=== PATIENT | male | born 1940 | race Caucasian/White ===

== ENCOUNTER → 2017-09-08 | Outpatient (CLI) | payer MEDICARE | LOC: COL.RAD 13:58 | DX: M51.37 Other intervertebral disc degeneration, lumbosacral region (principal); M43.17 Spondylolisthesis, lumbosacral region ==

== ENCOUNTER 2019-06-22 09:45 | Outpatient (CLI) | payer MEDICARE ==
[2019-06-22] VITALS (44 sets, daily range): BP systolic 107–138; BP diastolic 63–74; PULSE 46–65; TEMP 36.7; O2SAT 76–99
[~2019-06-22] VITALS: Ht 182.9 cm; Wt 101.9 kg
[2019-06-22] MEDS ORDERED: ZOCOR 40MG40 MG PO (10:09)
[2019-06-22] MEDS ORDERED: ASPIRIN E.C. 8181 MG PO (10:10)
[2019-06-22] MEDS ORDERED: GLUCOSAMINE & C1 CA1 PO (10:15)
[2019-06-22] MEDS ORDERED: PRINIVIL40 MG PO (10:16)
[2019-06-22] MEDS ORDERED: FLOMAX 0.40.4 MG/CAP PO (10:17)
[2019-06-22] MEDS ORDERED: TOPROL XL 25MG25 MG PO (10:37)
--- NOTE | 2019-06-22 12:35 | NUR ---
SPOKE WITH EMILY JACOB REGARDING PATIENTS NEW ONSET TACHYCARDIA. VERBAL ORDER RECEVIED FOR LOPRESSOR 5 MG IV. ELIGIO, METALLURGICAL ANALYST RN IS AT BS. TACHYCARDIA STARTED AFTER INSERTION OF LOOP RECORDER. PT DENIES ANY CP, SOB ETC, HE IS FEELING THE PALPITATIONS.
--- NOTE | 2019-06-22 12:45 | NUR ---
Loop recorder inserted. Following application of sterile dressing, pt states "I feel like my heart is beating fast". Radial pulse palpated and noted tachycardic. Pt denying dizziness, SOA, or other sx at this time. equipment monitor phototypesetting applied with HR noted 140-150. Stat BP checked with SBP 150's. Pt remains asymptomatic. CECIL Palmer notified and into room to assess pt. EKG obtained; reviewed by CECIL Palmer. Dr Ambrose notified by Estela. This RN performing bedside handoff to REJI Duron. Pt HR remains tachycardic with intermittent returns to normal rhythm. Pt remains completely asymptomatic at time of handoff, and other VS's remain WNL.
--- NOTE | 2019-06-22 13:07 | NUR ---
METOPROLOL IS IN, PT CONTINUES ON MONITOR. PLAN IS TO MONITOR PT FOR 30 MINUTES THEN TOUCH BASE WITH EMILY JACOB. PT IS IN SINUS WITH OCCASIONAL BIGEMINAL PVCS, RATE IS MORE CONTROLLED NOW, STAYING IN 70-80'2... PRIOR TO METOPROLOL RATE WAS 80'S TO 120'S... PT IS ASYMPTOMATIC, P,W,D, RESP REG AND UNLABORED.
--- NOTE | 2019-06-22 14:43 | NUR ---
PT HAS BEEN MONITORED CONTINUOUSLY, HAS HAD NO TACHYCARDIA, RATES HAVE BEEN STEADY 60-80.... OCCASIONAL BIGEMINY, OCCASIONAL PVCS. PT HAS BEEN ASYMPTOMATIC. HE IS AMBULATORY NOW WITH A STEADY GAIT, NO DIZZINESS OR OTHER SX. I SPOKE WITH EMILY JACOB, AND SHE WILL CONSULT WITH LIO ERNANDEZ. DISCHARGE IS PENDING.
--- NOTE | 2019-06-22 15:06 | NUR ---
REVIEDWED DC INSTRUCTIONS WITH PT AND . DC'D IV, CATH INTACT, AMB TO EXIT WITH ,, GAIT STEADY
== END 2019-06-22 18:02 | disposition home or self-care (01) ==
LOC: COL.CAR 09:45
DX: I48.91 Unspecified atrial fibrillation (principal); I47.1 Supraventricular tachycardia; I71.4 Abdominal aortic aneurysm, without rupture; N40.0 Benign prostatic hyperplasia without lower urinary tract symptoms; I10 Essential (primary) hypertension; I72.3 Aneurysm of iliac artery; I49.3 Ventricular premature depolarization; Z79.82 Long term (current) use of aspirin; Z87.891 Personal history of nicotine dependence; Z82.49 Family history of ischemic heart disease and other diseases of the circulatory system; E66.9 Obesity, unspecified
CPT/HCPCS: C1764

== ENCOUNTER → 2019-12-01 | Outpatient (CLI) | payer MEDICARE ==
[~2019-12-01] MED LIST: ASPIRIN E.C. 8181 MG PO; FLOMAX 0.40.4 MG/CAP PO; GLUCOSAMINE & C1 CA1 PO; PRINIVIL40 MG PO; TOPROL XL 25MG25 MG PO; ZOCOR 40MG40 MG PO
== END ==
LOC: COL.RAD 08:16
DX: Z01.812 Encounter for preprocedural laboratory examination (principal); R90.82 White matter disease, unspecified; G31.9 Degenerative disease of nervous system, unspecified
CPT/HCPCS: A9585

== ENCOUNTER → 2021-03-18 | Outpatient (CLI) | payer MEDICARE ==
[~2021-03-18] MED LIST changes: +ARICEPT10 MG PO; +ASPI325T6 PO; +BENADRYL25 M2 PO; +CELEBREX 200MG200 MG PO; +FOLIC ACID 11 MG/TA1 PO; +LIPITOR 40MG TA40 MG PO; +MASON NATURAL2000 IU PO; +NAMENDA 10MG TA10 MG PO; +NATURAL IRON65 MG PO; +OMNICEF 300MG300 MG PO; +ONE-A-DAY ESSE1 EACH PO; +OSCAL 500 TAB500 MG PO; +PACERONE200 MG PO; +ROXICODONE 55 MG/TAB PO; +SENOKOT S 50 MG1 TAB PO; +TYLENOL 325MG325 MG PO; +VITAMIN C500 MG PO
== END ==
LOC: COL.RAD 08:09
DX: I70.90 Unspecified atherosclerosis (principal); I72.3 Aneurysm of iliac artery; I71.4 Abdominal aortic aneurysm, without rupture

== ENCOUNTER 2021-05-02 22:26 | Inpatient (IN) | payer MEDICARE ==
[~2021-05-02] VITALS: Ht 183 cm; Wt 89.1 kg
[~2021-05-02 22:26] MED LIST changes: -ARICEPT10 MG PO; -ASPI325T6 PO; -BENADRYL25 M2 PO; -CELEBREX 200MG200 MG PO; -FOLIC ACID 11 MG/TA1 PO; -LIPITOR 40MG TA40 MG PO; -MASON NATURAL2000 IU PO; -NAMENDA 10MG TA10 MG PO; -NATURAL IRON65 MG PO; -OMNICEF 300MG300 MG PO; -ONE-A-DAY ESSE1 EACH PO; -OSCAL 500 TAB500 MG PO; -PACERONE200 MG PO; -ROXICODONE 55 MG/TAB PO; -SENOKOT S 50 MG1 TAB PO; -TYLENOL 325MG325 MG PO; -VITAMIN C500 MG PO
[2021-05-02 23:57] LABS: BASO # 0.1 (0.0-0.2); BASO % 0.5 % (0.0-2.0); EOS # 1.6 (0.0-0.7); EOS % 8.4 % (0-4.0); GRAN # 15.3 (1.4-6.5); GRAN % 78.7 % (42.2-75.2); HEMOGLOBIN 12.1 g/dl (13.5-18.0); LYMPH # 1.4 (1.2-3.4); LYMPH % 7.1 % (20.0-51.0); MEAN CELL VOLUME 94 fl (80.0-100.0); MEAN CORPUSCULAR HEMOGLOBIN 31 pg (27.0-31.0); MEAN CORPUSCULAR HGB CONC 33 g/dl (33.0-37.0); MEAN PLATELET VOLUME 10.2 fl (7.4-10.4); MONO # 0.9 (0.1-0.6); MONO % 4.6 % (1.7-9.3); PLATELET COUNT 177 K/mm3 (130-400); RED BLOOD COUNT 3.86 M/mm3 (4.20-5.60); REDCELL DISTRIBUTION WIDTH-CV 13.4 % (11.5-14.5)
[2021-05-02 23:58] LABS: HEMATOCRIT 36.4 % (42.0-52.0)
[2021-05-03 00:04] LABS: INR 1.2 (0.8-3.0); PROTHROMBIN TIME 13.6 SECONDS (9.7-12.8)
[2021-05-03 00:08] LABS: CALCIUM 8.6 mg/dL (8.4-10.2); CREATININE, serum 1.06 (0.66-1.25); POTASSIUM 4.2 mmol/L (3.4-5.0)
[2021-05-03] MEDS ORDERED: FOLIC ACID 11 MG/TA1 PO (01:07)
[2021-05-03] MEDS ORDERED: PACERONE200 MG PO (01:07)
[2021-05-03] MEDS ORDERED: BENADRYL25 M2 PO (01:08)
[2021-05-03] MEDS ORDERED: ONE-A-DAY ESSE1 EACH PO (01:08)
[2021-05-03] MEDS ORDERED: MASON NATURAL2000 IU PO (01:08)
[2021-05-03] MEDS ORDERED: NAMENDA 10MG TA10 MG PO (01:09)
[2021-05-03] MEDS ORDERED: ARICEPT10 MG PO (01:09)
[2021-05-03] MEDS ORDERED: LIPITOR 40MG TA40 MG PO (01:22)
[2021-05-03 02:36] VITALS: BP 119/58; PULSE 66; TEMP 97.8
[2021-05-03 07:00] LABS: BASO # 0.1 (0.0-0.2); BASO % 0.3 % (0.0-2.0); EOS # 0.1 (0.0-0.7); EOS % 0.4 % (0-4.0); GRAN # 14.3 (1.4-6.5); GRAN % 89.4 % (42.2-75.2); LYMPH # 0.6 (1.2-3.4); LYMPH % 3.7 % (20.0-51.0); MEAN CELL VOLUME 95 fl (80.0-100.0); MEAN CORPUSCULAR HEMOGLOBIN 32 pg (27.0-31.0); MEAN CORPUSCULAR HGB CONC 33 g/dl (33.0-37.0); MEAN PLATELET VOLUME 11.1 fl (7.4-10.4); MONO # 0.9 (0.1-0.6); MONO % 5.6 % (1.7-9.3); PLATELET COUNT 196 K/mm3 (130-400); RED BLOOD COUNT 3.49 M/mm3 (4.20-5.60); REDCELL DISTRIBUTION WIDTH-CV 13.6 % (11.5-14.5)
[2021-05-03 07:01] LABS: HEMATOCRIT 33.2 % (42.0-52.0)
[2021-05-03 07:09] LABS: ALBUMIN 3.5 gm/dL (3.5-5.0); CALCIUM 8.3 mg/dL (8.4-10.2); CREATININE, serum 1.01 (0.66-1.25); POTASSIUM 4.4 mmol/L (3.4-5.0); TOTAL PROTEIN 5.8 gm/dL (6.4-8.2)
[2021-05-03 07:28] VITALS: BP 115/60; PULSE 80; TEMP 98.2
--- NOTE | 2021-05-03 08:00 | NUR ---
PATIENT HAS AN UNDERLINED HISTORY OF DEMENTIA BUT IS A&O X3. VSS ON TELE. LLE IS EXTERNALLY ROTATED & SHORTENED. PATIENT DENIES PAIN AT REST. TEDS TO RLE. SCD'S TO BLE. SEVERAL SKIN ISSUES NOTED FROM FALLS, SEE SHIFT ASSESSMENT. LUIS TO DD WITH SMALL AMOUNTS OF PARAG COLORED URINE. IV FLUIDS INFUSING VIA PUMP INTO RIGHT FORARM. NPO. NO FREE WATER. HEAD TO TOE ASSESSMENT COMPLETE. SURGERY PENDING CLEARENCE.
[2021-05-03 09:46] LABS: COLLECTION METHOD CATHETER
[2021-05-03 09:56] LABS: MUCOUS Present /lpf; PH 5 (5-8); SQUAMOUS EPITHELIAL None Seen /hpf; URINE APPEARANCE Cloudy; URINE BACTERIA Rare /hpf; URINE BILIRUBIN Negative (NEGATIVE); URINE BLOOD 3+ (NEGATIVE); URINE COLOR Amber; URINE GLUCOSE Negative (NEGATIVE); URINE KETONE Negative (NEGATIVE); URINE LEUKOCYTE ESTERASE 1+ (NEGATIVE); URINE NITRATE Negative (NEGATIVE); URINE PROTEIN(semi-quant) 2+ (NEGATIVE); URINE RBC >50 /hpf
[2021-05-03 11:32] VITALS: BP 93/42; PULSE 56; TEMP 97.9
--- NOTE | 2021-05-03 12:00 | NUR ---
HOSPITALIST TONI. PREVIOUS RIGHT AC IV EDEMATOUS, DC'D AND RESTARTED IV SITE INTO LEFT HAND ON FIRST ATTEMPT WITH 20 GAUZE IV. IV CURRENTLY TO INT PER ANESTHESIA. ANESTHESIA AT BEDSIDE FOR PENDING SURGERY TOMORROW. RUE ON PILLOW WITH WARM BLANKET INPLACE. PATIENT DENIES DISCOMFORT IN RUE AND HAS NO CONCERNS AT THIS TIME. AT BEDSIDE.
--- NOTE | 2021-05-03 14:02 | NUR ---
SW met with patient to complete intake. Patient's Louisa present at time of intake and patient was okay with spouse assisting with answering intake questions. Hermelinda phone number is [phone]. Spouse states that she is the DPOA-HC and has the documenation at home. Spouse provides that patient does not utilize DME and independent with ADL's. Patient states that his PCP is Dr. Zavaleta, pharmacy is [place], and is able to afford medications. Patient states that his plan is to return back to his home. SW will continue to follow. DC Plan: Home with spouse
[2021-05-03 14:42] LABS: CALCIUM 8.4 mg/dL (8.4-10.2); CREATININE, serum 1.17 (0.66-1.25); POTASSIUM 4.3 mmol/L (3.4-5.0)
[2021-05-03 16:02] VITALS: BP 145/46; PULSE 54; TEMP 97.9
--- NOTE | 2021-05-03 17:18 | NUR ---
CALLED HOUSE FOR ARM SLING.
--- NOTE | 2021-05-03 17:45 | NUR ---
ORTHO PA NOTIFIED OF CLAVICAL FX. SLING ORDERED BY HOSPITALIST. AWAITING SLING
[2021-05-03 19:48] VITALS: BP 140/59; PULSE 84; TEMP 97
--- NOTE | 2021-05-03 21:00 | NUR ---
PT TAKES HS MEDS WITHOUT PROBLEM. PREOP SPONGE BATH GIVEN, NEW GOWN ON. IS ALERT AND ORIENTED X3. HAS SL TO LEFT HAND, RT ARM GROSSLY EDEMATOUS, REMOVED SLING AND ELEVATED ON PILLOW. CONSENT SIGNED FOR SURGERY IN AM. DENIES PAIN ONLY WITH MOVEMENT. REMOVED JEANNETTE HOSE FROM LEFT LEG AND PLACED ON RT LEG. CLEANSED ABRASIONS TO KNEES AND ELBOWS. ICE PACK PLACED TO LEFT HIP.
[2021-05-03 23:44] VITALS: BP 137/58; PULSE 73; TEMP 98.4
[2021-05-04] VITALS (11 sets, daily range): BP systolic 108–140; BP diastolic 33–89; PULSE 59–73; TEMP 98–99.4
--- NOTE | 2021-05-04 | NUR ---
NPO FOR SURGERY IN AM.
--- NOTE | 2021-05-04 03:57 | NUR ---
TAKES SCHEDULED TYLENOL WITH SIP OF GATORADE. RT ARM LESS SWOLLEN AFTER HAVING ELEVATED ON PILLOW.
--- NOTE | 2021-05-04 06:00 | NUR ---
CONNECTED PREOP FLUIDS TO LEFT HAND. READY FOR SURGERY.
[2021-05-04 06:34] LABS: BASO % 0.5 % (0.0-2.0); EOS # 0.5 (0.0-0.7); EOS % 5.2 % (0-4.0); GRAN # 5.8 (1.4-6.5); GRAN % 65.6 % (42.2-75.2); LYMPH # 1.4 (1.2-3.4); LYMPH % 15.3 % (20.0-51.0); MEAN CELL VOLUME 95 fl (80.0-100.0); MEAN CORPUSCULAR HGB CONC 33 g/dl (33.0-37.0); MEAN PLATELET VOLUME 10.6 fl (7.4-10.4); MONO # 1.1 (0.1-0.6); MONO % 12.9 % (1.7-9.3); PLATELET COUNT 157 K/mm3 (130-400); RED BLOOD COUNT 2.89 M/mm3 (4.20-5.60); REDCELL DISTRIBUTION WIDTH-CV 13.5 % (11.5-14.5)
[2021-05-04 06:39] LABS: HEMATOCRIT 27.4 % (42.0-52.0); MEAN CORPUSCULAR HEMOGLOBIN 31 pg (27.0-31.0)
[2021-05-04 06:45] LABS: ANION GAP 1 mmol/L (7-16); BLOOD UREA NITROGEN 21 mg/dL (9-20); CALCIUM 8.1 mg/dL (8.4-10.2); CARBON DIOXIDE 27 mmol/L (22-30); CHLORIDE 95 mmol/L (98-107); CREATININE, serum 1.04 (0.66-1.25); GLUCOSE 107 mg/dL (74-106); POTASSIUM 4.3 mmol/L (3.4-5.0); SODIUM 123 mmol/L (137-145)
[2021-05-04 07:14] LABS: TROPONIN-I < 0.012 ng/mL (0.000-0.035)
--- NOTE | 2021-05-04 07:15 | NUR ---
ELEVATOR EXAMINER AND ADJUSTER SENDING PATIENT TO THE OR. CONSENT ON CHART.
--- NOTE | 2021-05-04 09:30 | NUR ---
PATIENT BACK IN ROOM POST OP. A&O. VSS. NO C/O PAIN IN LLE. LEFT HIP INCISIONS X3 ARE CD&I WITH GAUZE & TEGADERM. TEDS & SCD'S TO BLE. POSITIVE PEDAL PULSES TO BLE. LUIS TO DD WITH MOD AMOUNTS OF CLEAR YELLOW URINE NOTED. IV FLUIDS INFUSING INTO LEFT HAND. NO C/O N/V. HEAD TO TOE ASSESSMENT COMPLETE. PATIENT REPORTS HE IS COLD, WARM BLANKET APPLIED. NO OTHER NEEDS. CALL LIGHT IN REACH.
--- NOTE | 2021-05-04 11:00 | NUR ---
SON CALLED BACK AND WAS GIVEN PATIENT STATUS UPDATE.
[2021-05-05 03:28] VITALS: BP 113/40; PULSE 70; TEMP 98.7
--- NOTE | 2021-05-05 06:01 | NUR ---
PATIENT POD 1 S/P LEFT HIP SURGERY. INCISION SITE CLEAN DRY AND INTACT. ALERT AND ORIENTED WITH PERIOD OF FORGETFULNESS. VSS. PAIN MANAGE WITH TYLENOL AROUND THE CLOTH. LUIS TO GRAVITY WITH CLEAR YELLOW URINE. CALL LIGHT WITHIN REACH. WILL CONTINUE TO MONITOR.
[2021-05-05 07:21] VITALS: BP 126/43; PULSE 67; TEMP 98.1
[2021-05-05 07:59] LABS: MEAN CELL VOLUME 97 fl (80.0-100.0); MEAN CORPUSCULAR HGB CONC 33 g/dl (33.0-37.0); PLATELET COUNT 145 K/mm3 (130-400); RED BLOOD COUNT 2.42 M/mm3 (4.20-5.60); REDCELL DISTRIBUTION WIDTH-CV 13.8 % (11.5-14.5)
--- NOTE | 2021-05-05 08:00 | NUR ---
PATIENT IS ORIENTED BUT HAS A HX OF UNDERLINED DEMENTIA. VSS. PATIENT REPORTS MINIMAL DISCOMFORT IN LEFT HIP. PATIENT ASSISTED TO BEDSIDE CHAIR WITH 2 ASSIST AND WALKER. LEFT HIP DRESSING IS CD&I. TEDS TO BLE. SCD'S CURRENTLY OFF. POSITIVE PEDAL PULSES. IV FLUIDS INFUSING VIA PUMP INTO LEFT HAND. LUIS TO DD WITH MOD AMOUNTS OF CLEAR YELLOW. NO C/O N/V. NO FREE WATER DUE TO LOW NA+. BREAKFAST TRAY AT BEDSIDE. AM MEDS GIVEN. HEAD TO TOE ASSESSMENT COMPLETE. NO OTHER NEEDS. CALL LIGHT IN REACH. CHAIR ALARM ON.
[2021-05-05 08:02] LABS: HEMATOCRIT 23.5 % (42.0-52.0); HEMOGLOBIN 7.7 g/dl (13.5-18.0); MEAN CORPUSCULAR HEMOGLOBIN 32 pg (27.0-31.0)
[2021-05-05 08:08] LABS: INR 1.2 (0.8-3.0); PROTHROMBIN TIME 13.8 SECONDS (9.7-12.8)
[2021-05-05 08:38] LABS: CALCIUM 7.9 mg/dL (8.4-10.2); CREATININE, serum 1.36 (0.66-1.25); POTASSIUM 4.5 mmol/L (3.4-5.0)
--- NOTE | 2021-05-05 09:45 | NUR ---
telecommunications linesworker met with patient to discuss discharge plan. Patient lives at home with his Louisa ([phone]) in [place]. Patient states he has been full independent prior to fx and used no DME to assist with mobility. Patient's PCP is and uses [facility] for a pharmacy. States he is unsure of what [facility] his goes to. Patient states he believes he has a DPOA-HC established but wasn't confident. telecommunications linesworker talked with the patient, explaining what a DPOA-HC is and if he didn't have one that his would legally be his agent. Patient also has a son (Kip, [facility]). telecommunications linesworker left DPOA-HC form with patient to discuss with his to confirm is he has one. telecommunications linesworker talked with the patient about PT recommending [facility]. Patient verbalized this understanding and is ok with referral. telecommunications linesworker discussed other referral options should [facility] not have a bed open. Patient unsure until he speaks with his . *Discharge plan: [facility] referral submitted*
--- NOTE | 2021-05-05 12:48 | NUR ---
First visit from the founding partner. No needs right now.
--- NOTE | 2021-05-05 14:22 | NUR ---
vessel slag worker met with patient and his Louisa about a second referral option for SNF. Patient and patient's verbalize [facility] as their first choice, [facility] as a second and [facility] as their thrid. [facility] referral sent this morning. vessel slag worker called [facility] and faxed referral. *Discharge Plan: First choice ([facility])/ Second choice ([facility])*
[2021-05-05 14:42] LABS: HEMATOCRIT 24.7 % (42.0-52.0)
[2021-05-05 14:43] VITALS: BP 146/41; PULSE 68; TEMP 97.8
[2021-05-05 14:56] LABS: IRON,SERUM 24 ug/dL (35-150)
[2021-05-05 15:06] LABS: TOTAL IRON BINDING CAPACITY 197 ug/dL (261-462)
[2021-05-05 16:05] VITALS: BP 143/50; PULSE 61; TEMP 97.9
--- NOTE | 2021-05-05 18:00 | NUR ---
PATIENT RESTING UP IN BED AND HAD A GOOD DAY. NO C/O PAIN. SHIFT REPORT GIVEN.
[2021-05-05 19:18] VITALS: BP 161/62; PULSE 65; TEMP 98.5
--- NOTE | 2021-05-05 21:00 | NUR ---
PT IN BED, TRIES TO USE URINAL, HAS LID ON AND URINATES IN BED, LINENS CHANGED. TAKES HS MEDS WITHOUT PROBLEM. IVF TO LEFT HAND, INFUSING WITHOUT PROBLEM. DRSG X2 TO LEFT HIP/LEG, D/I WITH MILD SWELLING. DENIES NEED FOR STRONGER PAIN MEDS, TAKING SCHEDULED TYLENOL.
[2021-05-05 23:14] VITALS: BP 146/53; PULSE 77; TEMP 98.5
[2021-05-06 03:16] VITALS: BP 150/48; PULSE 72; TEMP 98.4
--- NOTE | 2021-05-06 05:00 | NUR ---
PT USED URINAL ON HIS OWN WITHOUT SPILLING. TAKES SCHEDULED TYLENOL AT THIS TIME.
[2021-05-06 06:26] LABS: BASO % 0.2 % (0.0-2.0); EOS # 1.1 (0.0-0.7); EOS % 12.3 % (0-4.0); GRAN # 6.1 (1.4-6.5); GRAN % 66.1 % (42.2-75.2); LYMPH # 1.1 (1.2-3.4); LYMPH % 11.7 % (20.0-51.0); MEAN CELL VOLUME 96 fl (80.0-100.0); MEAN CORPUSCULAR HGB CONC 33 g/dl (33.0-37.0); MEAN PLATELET VOLUME 10.5 fl (7.4-10.4); MONO # 0.8 (0.1-0.6); MONO % 9.1 % (1.7-9.3); PLATELET COUNT 153 K/mm3 (130-400); RED BLOOD COUNT 2.21 M/mm3 (4.20-5.60); REDCELL DISTRIBUTION WIDTH-CV 13.9 % (11.5-14.5)
[2021-05-06 06:29] LABS: HEMATOCRIT 21.2 % (42.0-52.0); MEAN CORPUSCULAR HEMOGLOBIN 32 pg (27.0-31.0)
[2021-05-06 06:37] LABS: INR 1.2 (0.8-3.0); PROTHROMBIN TIME 13.3 SECONDS (9.7-12.8)
[2021-05-06 06:39] LABS: CALCIUM 7.9 mg/dL (8.4-10.2); CREATININE, serum 1.04 (0.66-1.25); POTASSIUM 4.6 mmol/L (3.4-5.0)
[2021-05-06 07:06] VITALS: BP 134/54; PULSE 72; TEMP 98.4
--- NOTE | 2021-05-06 08:00 | NUR ---
PATIENT IS ORIENTED BUT HAS A HX OF UNDERLINED DEMENTIA. VSS. PATIENT REPORTS MINIMAL DISCOMFORT IN LEFT HIP. PATIENT REQUESTING SOMETHING FOR PAIN BEFORE AM THERAPY. GAVE 1 TAB, PRN 5MG ROXICODONE WITH AM MEDS. LEFT HIP DRESSING IS CD&I. TEDS TO BLE. SCD'S CURRENTLY OFF. POSITIVE PEDAL PULSES. IV FLUIDS INFUSING VIA PUMP INTO LEFT HAND. VOIDING SUFFICIENT AMOUNTS. NO C/O N/V. NO FREE WATER DUE TO LOW NA+. BREAKFAST TRAY AT BEDSIDE. AM MEDS GIVEN. HEAD TO TOE ASSESSMENT COMPLETE. NO OTHER NEEDS. CALL LIGHT IN REACH. CHAIR ALARM ON.
[2021-05-06 10:59] LABS: HEMATOCRIT 23.5 % (42.0-52.0); HEMOGLOBIN 7.6 g/dl (13.5-18.0)
[2021-05-06 11:45] VITALS: BP 149/55; PULSE 61; TEMP 98
--- NOTE | 2021-05-06 15:08 | NUR ---
stoneworker contacted by Tania at [facility]. Patient's insurance authorization has been approved starting on 05/07/21. Tania verbalizes that she will secure a SNF bed for him. stoneworker has notifed patient's , physician and nurse that the patient is set to go to [facility] tomorrow. *Discharge Plan: [facility]*
[2021-05-06 15:26] VITALS: BP 145/61; PULSE 62; TEMP 97.7
[2021-05-06 19:17] VITALS: BP 140/54; PULSE 61; TEMP 98
--- NOTE | 2021-05-06 19:39 | NUR ---
RECEIVED CHANGE OF SHIFT REPORT FROM DAY SHIFT NURSE.
[2021-05-06 23:27] VITALS: BP 132/58; PULSE 75; TEMP 97.5
--- NOTE | 2021-05-07 01:30 | NUR ---
PATIENT SLEEPING, DOES WAKE WHEN DOOR TO ROOM IS OPENED BY STAFF ON ROUNDS. CALL LIGHT WITHIN REACH, BED ALARM ON.
[2021-05-07 03:39] VITALS: BP 130/60; PULSE 62; TEMP 97.7
--- NOTE | 2021-05-07 06:00 | NUR ---
NO FREE WATER RESTRICTION CONTINUES.
[2021-05-07 06:53] LABS: MEAN CELL VOLUME 97 fl (80.0-100.0); MEAN CORPUSCULAR HGB CONC 34 g/dl (33.0-37.0); MEAN PLATELET VOLUME 10.4 fl (7.4-10.4); PLATELET COUNT 186 K/mm3 (130-400); RED BLOOD COUNT 2.16 M/mm3 (4.20-5.60)
[2021-05-07 06:56] LABS: HEMATOCRIT 20.9 % (42.0-52.0); MEAN CORPUSCULAR HEMOGLOBIN 32 pg (27.0-31.0)
[2021-05-07 07:03] LABS: INR 1.2 (0.8-3.0)
[2021-05-07 07:09] LABS: POTASSIUM 4.5 mmol/L (3.4-5.0)
--- NOTE | 2021-05-07 07:17 | NUR ---
CHANGE OF SHIFT REPORT GIVEN TO DAY SHIFT NURSE, ALESSANDRA MENDOZA.
[2021-05-07 08:00] VITALS: BP 152/53; PULSE 68; TEMP 98.3
[2021-05-07] MEDS ORDERED: OMNICEF 300MG300 MG PO (08:59)
[2021-05-07] MEDS ORDERED: NATURAL IRON65 MG PO (09:00)
[2021-05-07] MEDS ORDERED: LIPITOR 40MG TA40 MG PO (09:01)
[2021-05-07] MEDS ORDERED: ARICEPT10 MG PO (09:01)
[2021-05-07] MEDS ORDERED: FLOMAX 0.40.4 MG/CAP PO (09:01)
[2021-05-07] MEDS ORDERED: PACERONE200 MG PO (09:01)
[2021-05-07] MEDS ORDERED: PRINIVIL40 MG PO (09:02)
[2021-05-07] MEDS ORDERED: ASPI325T6 PO (09:02)
[2021-05-07] MEDS ORDERED: TOPROL XL 25MG25 MG PO (09:02)
[2021-05-07] MEDS ORDERED: CELEBREX 200MG200 MG PO (09:03)
[2021-05-07] MEDS ORDERED: OSCAL 500 TAB500 MG PO (09:04)
[2021-05-07] MEDS ORDERED: ROXICODONE 55 MG/TAB PO (09:04)
[2021-05-07] MEDS ORDERED: NAMENDA 10MG TA10 MG PO (09:04)
[2021-05-07] MEDS ORDERED: TYLENOL 325MG325 MG PO (09:04)
[2021-05-07] MEDS ORDERED: FOLIC ACID 11 MG/TA1 PO (09:05)
[2021-05-07] MEDS ORDERED: GLUCOSAMINE & C1 CA1 PO (09:05)
[2021-05-07] MEDS ORDERED: ONE-A-DAY ESSE1 EACH PO (09:05)
[2021-05-07] MEDS ORDERED: SENOKOT S 50 MG1 TAB PO (09:05)
[2021-05-07] MEDS ORDERED: VITAMIN C500 MG PO (09:05)
[2021-05-07] MEDS ORDERED: MASON NATURAL2000 IU PO (09:05)
--- NOTE | 2021-05-07 11:34 | NUR ---
Tania from [facility] accepted patient for skilled care today. copy worker notified patient and patients that [facility] will be arriving for a transfer of patient to the [facility] for fpc between [id number]. copy worker presented IM form to patient, witnessed signature and gave patient original and copy placed in chart. Worker faxed discharge order to [facility].
[2021-05-07 11:44] VITALS: BP 136/42; PULSE 58; TEMP 98.6
[2021-05-07 11:57] VITALS: BP 136/42; PULSE 58; TEMP 98.6
--- NOTE | 2021-05-07 12:20 | NUR ---
Patient is discharging to [facility]. Report called to Abby MENDOZA. Patient has been doing well this morning. Minimal complaints of pain. He did not have clothes here to wear to the facility. INT discontinued. All belongings packed up and sent with patient. Info packet sent with him as well.
== END 2021-05-07 12:20 | DRG 481 ==
LOC: COL.ER 22:26 → SURG 23:41
PROVIDERS: Emergency Medicine; Internal Medicine; Nurse Practitioner Family; Orthopaedic Surgery; Physician Assistant; ADMIT Internal Medicine
PROC: 0HQ0XZZ Repair Scalp Skin, External Approach (ICD-10-PCS; 2021-05-04)
PROC: 0QS706Z Reposition Left Upper Femur with Intramedullary Internal Fixation Device, Open Approach (ICD-10-PCS; principal; 2021-05-04 08:00)
DX: S72.142A Displaced intertrochanteric fracture of left femur, initial encounter for closed fracture (principal); N17.9 Acute kidney failure, unspecified; N39.0 Urinary tract infection, site not specified; E87.1 Hypo-osmolality and hyponatremia; W01.0XXA Fall on same level from slipping, tripping and stumbling without subsequent striking against object, initial encounter; Y92.008 Other place in unspecified non-institutional (private) residence as the place of occurrence of the external cause; I10 Essential (primary) hypertension; E78.5 Hyperlipidemia, unspecified; S01.01XA Laceration without foreign body of scalp, initial encounter; S60.410A Abrasion of right index finger, initial encounter; S80.212A Abrasion, left knee, initial encounter; S80.211A Abrasion, right knee, initial encounter; I48.91 Unspecified atrial fibrillation; N40.0 Benign prostatic hyperplasia without lower urinary tract symptoms; S42.035A Nondisplaced fracture of lateral end of left clavicle, initial encounter for closed fracture; D50.9 Iron deficiency anemia, unspecified; F03.90 Unspecified dementia, unspecified severity, without behavioral disturbance, psychotic disturbance, mood disturbance, and anxiety; Z20.822 Contact with and (suspected) exposure to COVID-19
CPT/HCPCS: 99223-AI; 99232-AI; 99233-AI; 99239; A4314; A9284; C1713; J0690; J0696; J2250; J2270; J2405; J2704; J7030; J7042; J7120

== ENCOUNTER 2021-10-01 07:09 | Day surgery (SDC) | payer MEDICARE ==
[~2021-10-01] VITALS: Ht 182.9 cm; Wt 88.7 kg
[~2021-10-01 07:09] MED LIST changes: +ARICEPT10 MG PO; +ASPI325T6 PO; +BENADRYL25 M2 PO; +CELEBREX 200MG200 MG PO; +FOLIC ACID 11 MG/TA1 PO; +LIPITOR 40MG TA40 MG PO; +MASON NATURAL2000 IU PO; +NAMENDA 10MG TA10 MG PO; +NATURAL IRON65 MG PO; +OMNICEF 300MG300 MG PO; +ONE-A-DAY ESSE1 EACH PO; +OSCAL 500 TAB500 MG PO; +PACERONE200 MG PO; +ROXICODONE 55 MG/TAB PO; +SENOKOT S 50 MG1 TAB PO; +TYLENOL 325MG325 MG PO; +VITAMIN C500 MG PO
[2021-10-01 08:21] LABS: HEMOGLOBIN 10.5 g/dl (13.5-18.0); MEAN CELL VOLUME 96 fl (80.0-100.0); MEAN CORPUSCULAR HEMOGLOBIN 30 pg (27-31); MEAN CORPUSCULAR HGB CONC 31 g/dl (33.0-37.0); MEAN PLATELET VOLUME 10.9 fl (7.4-10.4); PLATELET COUNT 182 K/mm3 (130-400); REDCELL DISTRIBUTION WIDTH-CV 15.8 % (11.5-14.5)
[2021-10-01] MEDS ORDERED: LASIX 40MG TABL40 MG PO (08:28)
[2021-10-01 08:29] LABS: HEMATOCRIT 33.6 % (42.0-52.0)
[2021-10-01] MEDS ORDERED: K-DUR20 MEQ PO (08:29)
[2021-10-01] MEDS ORDERED: ELIQUIS 5MG PO (08:29)
[2021-10-01 08:31] VITALS: BP 128/55; PULSE 52; TEMP 98.1
[2021-10-01 08:34] LABS: INR 2.3 (0.8-3.0); PROTHROMBIN TIME 25.4 SECONDS (9.7-12.8)
[2021-10-01 08:37] LABS: CALCIUM 8.7 mg/dL (8.4-10.2); CREATININE, serum 1.28 mg/dL (0.72-1.25); PARTIAL THROMBOPLASTIN TIME 39.2 SECONDS (26.0-37.0); POTASSIUM 4.2 mmol/L (3.5-4.5)
[2021-10-01 09:00] LABS: THYROID STIMULATING HORMONE 3.098 uIU/mL (0.350-4.940)
[2021-10-01] MEDS ORDERED: PACERONE200 MG PO (09:33)
[2021-10-01] MEDS ORDERED: COUMADIN 5MG5 MG/TAB PO (09:34)
--- NOTE | 2021-10-01 10:40 | NUR ---
IV DCd intact, no redness, edema, pain to site, patient changed back into clothes, escorted from unit via wheelchair, with at side.
== END 2021-10-01 17:25 ==
LOC: COL.CAR 07:09
PROVIDERS: Internal Medicine Cardiovascular Disease
DX: I48.91 Unspecified atrial fibrillation (principal); I11.0 Hypertensive heart disease with heart failure; I50.9 Heart failure, unspecified; I73.9 Peripheral vascular disease, unspecified; E78.5 Hyperlipidemia, unspecified; M19.90 Unspecified osteoarthritis, unspecified site; Z79.899 Other long term (current) drug therapy; Z87.891 Personal history of nicotine dependence; Z79.01 Long term (current) use of anticoagulants
CPT/HCPCS: J2704

== ENCOUNTER → 2022-03-17 | Outpatient (CLI) | payer MEDICARE ==
[~2022-03-17] MED LIST changes: +COUMADIN 5MG5 MG/TAB PO; +ELIQUIS 5MG PO; +K-DUR20 MEQ PO; +LASIX 40MG TABL40 MG PO
== END ==
LOC: COL.RAD 03-16 13:30
DX: I71.4 Abdominal aortic aneurysm, without rupture (principal)

== ENCOUNTER → 2023-12-01 | Outpatient (CLI) | payer MEDICARE | LOC: COL.RAD 08:56 | DX: J32.2 Chronic ethmoidal sinusitis (principal); J34.1 Cyst and mucocele of nose and nasal sinus ==

== ENCOUNTER → 2024-03-28 | Outpatient (CLI) | payer MEDICARE | LOC: COL.RAD 09:41 | DX: I71.43 Infrarenal abdominal aortic aneurysm, without rupture (principal) ==